=== PATIENT | female | born 1965 | race Caucasian/White ===

== ENCOUNTER 2019-06-20 10:28 | Emergency (ER) | payer BC ==
--- NOTE | 2019-06-20 11:26 | RAD REPORT ---
EXAM DESCRIPTION: RAD - Wrist Right 3 View - 06/20/2019 11:11 am CLINICAL HISTORY: Right wrist pain status post injury FINDINGS: No fracture or dislocation is seen. If the patient continues to have symptoms to suggest a n occult fracture then a followup plain film series in 7 days would be recommended.
--- NOTE | 2019-06-20 11:33 | ER ---
Nurse's Notes [facility] Name: Viri Gunderson Query Age: 53 yrs Sex: Female : 1965 Arrival Date: 06/20/2019 Time: 10:32 Bed 13 Private MD: Diagnosis: Contusion of right wrist Presentation: 06/20 10:50 Presenting complaint: Patient states: missed step on porch and fell forward, injured iw right wrist , occurred yesterday. Transition of care: patient was not received from another setting of care. Onset of symptoms was June 19, 2019. Risk Assessment: Do you want to hurt yourself or someone else? Patient reports no desire to harm self or others. Initial Sepsis Screen: Does the patient meet any 2 criteria? No. Patient's initial sepsis screen is negative. Does the patient have a suspected source of infection? No. Patient's initial sepsis screen is negative. Care prior to arrival: None. 10:50 Method Of Arrival: Ambulatory iw 10:50 Acuity: BEULAH 4 iw Historical: - Allergies: 10:51 PENICILLINS; iw 10:51 Sulfa (Sulfonamide Antibiotics); iw - Immunization history:: Adult Immunizations up to date. - Coronavirus screen:: The patient has NOT traveled to [place], [place], or [place] in the past 14 days. Proceed with normal triage process as indicated. - Social history:: Smoking status: Patient reports the use of cigarette tobacco products, smokes one pack cigarettes per day. - Family history:: not pertinent. - Ebola Screening: : Patient negative for fever greater than or equal to 101.5 degrees Fahrenheit, and additional compatible Ebola Virus Disease symptoms Patient denies exposure to infectious person Patient denies travel to an Ebola-affected area in the 21 days before illness onset No symptoms or risks identified at this time. - Hospitalizations: : No recent hospitalization is reported. Screenin:15 Abuse screen: Denies threats or abuse. Denies injuries from another. Nutritional ph screening: No deficits noted. Tuberculosis screening: No symptoms or risk factors identified. Fall Risk None identified. Assessment: 11:10 General: Appears in no apparent distress. comfortable, slender, Behavior is calm, ph cooperative, appropriate for age. Pain: Complains of pain in right wrist. Neuro: Level of Consciousness is awake, alert, obeys commands, Oriented to person, place, time, situation. Cardiovascular: Capillary refill < 3 seconds in bilateral fingers Patient's skin is warm and dry. Respiratory: Airway is patent Respiratory effort is even, unlabored, Respiratory pattern is regular, symmetrical. GI: No signs and/or symptoms were reported involving the gastrointestinal system. Derm: Skin is intact, is healthy with good turgor, Skin is pink, warm \T\ dry. Musculoskeletal: Circulation, motion, and sensation intact. Range of motion: intact in all extremities. Vital Signs: 10:52 BP 157 / 96; Pulse 94; Resp 16; Temp 98.1; Pulse Ox 99% on R/A; Weight 56.7 kg; Height iw 5 ft. 3 in. (160.02 cm); Pain 4/10; 10:52 Body Mass Index 22.14 (56.70 kg, 160.02 cm) iw ED Course: 10:32 Patient arrived in ED. as 10:46 Mal Mejia MD is Attending Physician. rn 10:51 Triage completed. iw 10:52 Arm band placed on. iw 11:02 Irina Hills RN is Primary Nurse. ph 11:10 Patient has correct armband on for positive identification. Bed in low position. Call ph light in reach. Side rails up X 1. 11:15 No provider procedures requiring assistance completed. Patient did not have IV access ph during this emergency room visit. 11:17 XRAY Wrist RIGHT 3 view In Process Unspecified. EDMS Administered Medications: No medications were administered Outcome: 11:32 Discharge ordered by . rn 11:39 Patient left the ED. ph 11:39 Discharged to home ambulatory. ph 11:39 Condition: good 11:39 Discharge instructions given to patient, Instructed on discharge instructions, follow up and referral plans. Demonstrated understanding of instructions, follow-up care. Signatures: Dispatcher [employer] Snehal Barclay Irene, RN RN iw Mal Mejia MD MD rn Hall, Patricia, RN RN ph
--- NOTE | 2019-06-20 11:33 | EDPHYS ---
Physician Documentation [facility] Name: Viri Gunderson Query Age: 53 yrs Sex: Female : 1965 Arrival Date: 06/20/2019 Time: 10:32 Bed 13 Private MD: ED Physician Mal Mejia HPI: 06/20 11:30 This 53 yrs old Female presents to ER via Ambulatory with complaints of Arm rn Injury. 11:30 The patient or guardian complains of injury, pain. The complaints affect the right rn wrist. Onset: The symptoms/episode began/occurred yesterday. Modifying factors: The symptoms are alleviated by nothing. the symptoms are aggravated by nothing. Severity of symptoms: At their worst the symptoms were mild, in the emergency department the symptoms are unchanged. The patient has not experienced similar symptoms in the past. Reports fall from porch, outstretched hand, + mild right wrist pain, is left handed, no swelling.. Historical: - Allergies: 10:51 PENICILLINS; iw 10:51 Sulfa (Sulfonamide Antibiotics); iw - Immunization history:: Adult Immunizations up to date. - Coronavirus screen:: The patient has NOT traveled to [place], [place], or [place] in the past 14 days. Proceed with normal triage process as indicated. - Social history:: Smoking status: Patient reports the use of cigarette tobacco products, smokes one pack cigarettes per day. - Family history:: not pertinent. - Ebola Screening: : Patient negative for fever greater than or equal to 101.5 degrees Fahrenheit, and additional compatible Ebola Virus Disease symptoms Patient denies exposure to infectious person Patient denies travel to an Ebola-affected area in the 21 days before illness onset No symptoms or risks identified at this time. - Hospitalizations: : No recent hospitalization is reported. ROS: 11:30 Constitutional: Negative for fever, chills, and weight loss, MS/Extremity: + right rn wrist pain Exam: 11:30 Constitutional: This is a well developed, well nourished patient who is awake, alert, rn and in no acute distress. MS/ Extremity: Pulses equal, no cyanosis. Neurovascular intact. + mild tenderness distal right radius, no swelling or deformity. Vital Signs: 10:52 BP 157 / 96; Pulse 94; Resp 16; Temp 98.1; Pulse Ox 99% on R/A; Weight 56.7 kg; Height iw 5 ft. 3 in. (160.02 cm); Pain 4/10; 10:52 Body Mass Index 22.14 (56.70 kg, 160.02 cm) MDM: 10:46 Patient medically screened. rn 11:30 Differential diagnosis: closed fracture, contusion. Data reviewed: vital signs, nurses rn notes, radiologic studies, plain films, and as a result, I will discharge patient. Test interpretation: by ED physician or midlevel provider: plain radiologic studies, Xray right wrist neg for fracture. Counseling: I had a detailed discussion with the patient and/or guardian regarding: the historical points, exam findings, and any diagnostic results supporting the discharge/admit diagnosis, radiology results, the need for outpatient follow up, to return to the emergency department if symptoms worsen or persist or if there are any questions or concerns that arise at home. Special discussion: I discussed with the patient/guardian in detail that at this point there is no indication for admission to the hospital. It is understood, however, that if the symptoms persist or worsen the patient needs to return immediately for re-evaluation. 06/20 10:49 Order name: XRAY Wrist RIGHT 3 view; Complete Time: 11:30 rn Administered Medications: No medications were administered Disposition: 06/20/19 11:32 Discharged to Home. Impression: Contusion of right wrist. - Condition is Stable. - Discharge Instructions: Contusion, Wrist Pain. - Medication Reconciliation Form, Thank You Letter, Antibiotic Education, Prescription Opioid Use form. - Follow up: Private Physician; When: As needed; Reason: Recheck today's complaints, Re-evaluation by your physician. - Problem is new. - Symptoms have improved. Signatures: Dispatcher [employer] EDME Ramona Lee RN RN iw Nieto, Roman, MD MD rn Hall, Patricia, RN RN ph Corrections: (The following items were deleted from the chart) 11:39 11:32 06/20/2019 11:32 Discharged to Home. Impression: Contusion of right wrist. ph Condition is Stable. Forms are Medication Reconciliation Form, Thank You Letter, Antibiotic Education, Prescription Opioid Use. Follow up: Private Physician; When: As needed; Reason: Recheck today's complaints, Re-evaluation by your physician. Problem is new. Symptoms have improved. rn
[2019-06-20 11:45] VITALS: BP 157/96; TEMP 98.1; O2SAT 99
== END 2019-06-20 11:39 | disposition home or self-care (01) ==
LOC: ER 10:28
DX: S60.211A Contusion of right wrist, initial encounter (principal); W17.89XA Other fall from one level to another, initial encounter; Y93.9 Activity, unspecified; Y92.89 Other specified places as the place of occurrence of the external cause; Z88.0 Allergy status to penicillin; Z88.2 Allergy status to sulfonamides; F17.210 Nicotine dependence, cigarettes, uncomplicated
CPT/HCPCS: 99283

== ENCOUNTER 2023-11-06 08:30 | Observation (INO) | payer OTHER ==
[2023-11-06] MEDS ORDERED: FAMOTIDINE 20 MG/2 ML VIAL IV ONE (09:01)
[2023-11-06] MEDS ORDERED: NA CHLORIDE 0.9% 500 ML ONE (09:02)
[2023-11-06] MEDS ORDERED: NA CHLORIDE 0.9% 1,000 ML ONE (09:02)
[2023-11-06 09:19] LABS: Absolute Basophils 0.1 K/uL (0-0.5); Absolute Eosinophils 0.1 K/uL (0-0.5); Absolute Lymphocytes (CBC) 2.3 K/uL (0.7-4.9); Absolute Monocytes 0.8 K/uL (0.1-1.3); Absolute Neutrophil 5.8 K/uL (1.8-8.0); Basophils % 0.8 % (0-1.3); Eosinophils % 1.1 % (0-4.4); Hematocrit 42.9 % (36.0-45.0); Hemoglobin 14.6 g/dL (12.0-15.0); Lymphocytes % 25.6 % (15.3-44.8); MCH 32.2 pg (27.0-35.0); MCHC 34.1 g/dL (32.0-36.0); MCV 94.4 fL (80-100); MPV 7.9 fL (7.6-11.3); Monocytes % 8.3 % (3.3-12.3); Neutrophils % 64.2 % (41.7-73.7); Nucleated Red Blood Cells % 0.1 % (0-0); Platelets 376 thou/uL (152-406); RBC Red Blood Cell Count 4.55 M/uL (3.86-4.86); Red Cell Distribution Width 13.7 % (12.1-15.2)
[2023-11-06 09:19] LABS: PT Prothrombin Time 11.3 SECONDS (9.4-12.5); Protime INR 1.03
[2023-11-06] MEDS ORDERED: METOPROLOL XL 50 MG TAB PO ONE (09:34)
[2023-11-06] MEDS ORDERED: MAGNESIUM SULFATE 1 gm IVPB 1 GM/100 ML BAG IV ONE (09:34)
[2023-11-06 09:42] LABS: Albumin 3.8 g/dL (3.4-5.0); Albumin/Globulin Ratio 1.3 (1.1-1.8); Anion Gap 11.6 mEq/L (5.0-15.0); Bilirubin Direct 0.2 mg/dL (0-0.2); Bilirubin Indirect, Calculated 0.3 mg/dL (0.2-0.8); Bilirubin Total 0.5 mg/dL (0.2-1.0); Globulin 2.9 g/dL (2.3-3.5); Magnesium 2.1 mg/dL (1.6-2.4); Potassium 3.6 mEq/L (3.5-5.1); Protein, Total 6.7 g/dL (6.4-8.2); Thyroid Stimulating Hormone 0.527 uIU/mL (0.358-3.740); Troponin High Sensitivity 3.2 pg/mL (<58.9)
--- NOTE | 2023-11-06 09:51 | RAD REPORT ---
EXAM DESCRIPTION: Aly Single View11/06/2023 9:22 am CLINICAL HISTORY: Chest pain COMPARISON: none FINDINGS: The lungs appear clear of acute infiltrate. The heart is normal size IMPRESSION: No acute abnormalities displayed
[2023-11-06 10:14] LABS: Specific Gravity 1.006 (1.005-1.030); Sqamous Epithelial None Seen /HPF (None Seen); Urine Bacteria None Seen /HPF (<20); Urine Bilirubin NEGATIVE (Negative); Urine Blood 1+ (Negative); Urine Clarity Clear (Clear); Urine Color Colorless (Yellow); Urine Culture Reflex Order NOT NEEDED; Urine Glucose NEGATIVE (Negative); Urine Ketones 1+ (Negative); Urine Microscopic Reflex YN ORDER UMIC; Urine Nitrite NEGATIVE (Negative); Urine Protein NEGATIVE (Negative); Urine RBC None Seen /HPF (None Seen); Urine Urobilinogen Normal (Normal); Urine WBC <5 /HPF (<5)
--- NOTE | 2023-11-06 13:24 | ER ---
Nurse's Notes [facility] Name: Viri Gunderson Query Age: 58 yrs Sex: Female : 1965 Arrival Date: 11/06/2023 Time: 08:30 Bed 16 Private MD: Diagnosis: Chest pain, unspecified;Essential (primary) hypertension;Tobacco abuse counseling;Tobacco use Presentation: 11/05 08:39 Chief complaint: Patient states: CHEST PAIN X 3 DAYS WORSE THIS AM. Coronavirus screen: db Client denies travel out of the [place] in the last 14 days. At this time, the client does not indicate any symptoms associated with coronavirus-19. Ebola Screen: Patient negative for fever greater than or equal to 101.5 degrees Fahrenheit, and additional compatible Ebola Virus Disease symptoms Patient denies exposure to infectious person. Patient denies travel to an Ebola-affected area in the 21 days before illness onset. No symptoms or risks identified at this time. Initial Sepsis Screen: Does the patient meet any 2 criteria? HR > 90 bpm. No. Patient's initial sepsis screen is negative. Does the patient have a suspected source of infection? No. Patient's initial sepsis screen is negative. Risk Assessment: Do you want to hurt yourself or someone else? Patient reports no desire to harm self or others. Onset of symptoms was November 06, 2023. Care prior to arrival: Medication(s) given: ASA, 81 mg, x 4, Nitroglycerin, 0.4 mg SL x 2, IV initiated. 20 GA, in the right hand. 08:39 Method Of Arrival: EMS: [facility] db 08:39 Acuity: BEULAH 2 db Triage Assessment: 08:41 General: Appears in no apparent distress. comfortable, Behavior is calm, cooperative. db Pain: Complains of pain in chest. Historical: - Allergies: 08:41 PENICILLINS; db 08:41 Sulfa (Sulfonamide Antibiotics); db - PMHx: 08:41 Chronic back pain; db - PSHx: 08:41 HYSTERECTOMY; BACK SURGERY; db - Immunization history:: Adult Immunizations unknown. - Infectious Disease History:: Denies. - Social history:: Smoking status: Patient reports the use of cigarette tobacco products, smokes one pack cigarettes per day. - Family history:: not pertinent. Screenin:26 [facility] ED Fall Risk Assessment (Adult) History of falling in the last 3 months, db including since admission No falls in past 3 months (0 pts) Confusion or Disorientation No (0 pts) Intoxicated or Sedated No (0 pts) Impaired Gait No (0 pts) Mobility Assist Device Used No (0 pt) Altered Elimination No (0 pt) Score/Fall Risk Level 0 - 2 = Low Risk Oriented to surroundings, Maintained a safe environment. Abuse screen: Denies threats or abuse. Denies injuries from another. Nutritional screening: No deficits noted. Tuberculosis screening: No symptoms or risk factors identified. Assessment: 09:00 Reassessment: Patient appears in no apparent distress at this time. Patient and/or db family updated on plan of care and expected duration. Pain level reassessed. Patient is alert, oriented x 3, equal unlabored respirations, skin warm/dry/pink. General: Appears in no apparent distress. comfortable. Pain: Complains of pain in chest. Neuro: Level of Consciousness is awake, alert, obeys commands, Oriented to person, place, time, situation. Cardiovascular: Reports chest pain. Respiratory: Airway is patent Respiratory effort is even, unlabored, Respiratory pattern is regular, symmetrical. 10:49 Reassessment: Patient appears in no apparent distress at this time. Patient and/or nj1 family updated on plan of care and expected duration. Pain level reassessed. Patient is alert, oriented x 3, equal unlabored respirations, skin warm/dry/pink. Patient denies pain at this time. Patient states feeling better. Patient states symptoms have improved. 11:57 Reassessment: Patient appears in no apparent distress at this time. Patient and/or nj1 family updated on plan of care and expected duration. Pain level reassessed. Patient is alert, oriented x 3, equal unlabored respirations, skin warm/dry/pink. 12:53 Reassessment: Patient appears in no apparent distress at this time. Patient and/or nj1 family updated on plan of care and expected duration. Pain level reassessed. Patient is alert, oriented x 3, equal unlabored respirations, skin warm/dry/pink. Patient denies pain at this time. 14:00 Reassessment: Patient appears in no apparent distress at this time. Patient and/or nj1 family updated on plan of care and expected duration. Pain level reassessed. Patient is alert, oriented x 3, equal unlabored respirations, skin warm/dry/pink. 15:31 Reassessment: Patient appears in no apparent distress at this time. Patient and/or nj1 family updated on plan of care and expected duration. Pain level reassessed. Patient is alert, oriented x 3, equal unlabored respirations, skin warm/dry/pink. 16:46 Reassessment: Patient appears in no apparent distress at this time. Patient and/or nj1 family updated on plan of care and expected duration. Pain level reassessed. Patient is alert, oriented x 3, equal unlabored respirations, skin warm/dry/pink. Vital Signs: 08:39 BP 121 / 58; Pulse 124; Resp 18; Pulse Ox 95% on R/A; db 09:00 BP 123 / 75; Pulse 95; Resp 14; Temp 98(TE); Pulse Ox 95% ; db 09:30 BP 120 / 80; Pulse 87; Resp 16; Pulse Ox 99% on R/A; db 10:49 BP 126 / 82; Pulse 72; Resp 12; Pulse Ox 96% ; Pain 0/10; nj1 11:57 BP 125 / 80; Pulse 77; Resp 12; Pulse Ox 96% on R/A; nj1 12:54 BP 136 / 87; Pulse 77; Resp 15; Pulse Ox 96% ; Pain 0/10; nj1 13:24 Weight 56.7 kg (R); nj1 14:00 BP 145 / 75; Pulse 77; Resp 14; Pulse Ox 96% on R/A; nj1 15:30 BP 125 / 76; Pulse 78; Resp 12; Pulse Ox 95% on R/A; nj1 16:46 BP 139 / 84; Pulse 74; Resp 17; Temp 97.9; Pulse Ox 95% ; Pain 0/10; nj1 10:49 Pain Scale: Adult nj1 12:54 Pain Scale: Adult nj1 16:46 Pain Scale: Adult nj1 ED Course: 08:35 Patient arrived in ED. bd 08:35 Jose Powell MD is Attending Physician. amauri 08:39 Rachel Camacho, RN is Primary Nurse. db 08:41 Triage completed. db 08:41 Arm band placed on Patient placed in an exam room. db 09:24 XRAY Chest (1 view) In Process Unspecified. EDMS 09:42 Urine collected: clean catch specimen. db 09:42 Maintain EMS IV. Dressing intact. Good blood return noted. Site clean \T\ dry. Gauge \T\ db site: 20 G RIGHT FOREARM. 10:26 Patient has correct armband on for positive identification. Bed in low position. Call db light in reach. Side rails up X 1. Report given to TAD HOLM. Warm blanket given. Pillow given. 10:43 Shikha Quiñonez RN is Primary Nurse. nj1 13:22 Kashmir Hwang MD is Hospitalizing Provider. amauri Administered Medications: 09:00 Drug: NS 0.9% IV 500 ml IV at bolus once Route: IV; Rate: bolus; Site: right forearm; db 10:52 Follow up: Response: No adverse reaction; IV Status: Completed infusion; IV Intake: nj1 500ml 09:00 Drug: Famotidine IVP 20 mg IVP once; dilute with 10 mL 0.9% NaCl; give over 2 minutes db Route: IVP; Site: right forearm; 10:51 Follow up: Response: No adverse reaction nj1 09:35 Drug: Metoprolol PO 50 mg PO once Route: PO; db 10:51 Follow up: Response: No adverse reaction nj1 09:40 Drug: Magnesium Sulfate IVPB 1 grams IVPB once over 1 hrs Route: IVPB; Infused Over: 1 db hrs; Site: right forearm; 10:51 Follow up: Response: No adverse reaction; IV Status: Completed infusion; IV Intake: nj1 100ml 10:50 Drug: NS 0.9% IV 1000 ml IV at 125 ml/hr continuous Route: IV; Rate: 125 ml/hr; Site: nj1 right antecubital; 13:34 Drug: Aspirin PO Chewable Tablet 81 mg PO once Route: PO; nj1 13:34 Drug: Enoxaparin Sub-Q 1 mg/kg Sub-Q once Route: Sub-Q; Site: left upper abdomen; nj1 13:34 Drug: Nicoderm CQ Transdermal Patch 21 mg/24 hr 21 mg Transdermal once {Note: back.} nj1 Route: Transdermal; Site: affected area; Intake: 10:51 IV: 100ml; Total: 100ml. nj1 10:52 IV: 500ml; Total: 600ml. nj1 Outcome: 13:23 Decision to Hospitalize by Provider. amauri 18:32 Patient left the ED. nj1 Signatures: Dispatcher [employer] EDMS Marysol Hernandez Corey, MD MD cha Benton, Danielle, RN Shikha Carrington RN RN nj1 Corrections: (The following items were deleted from the chart) 12:14 11:57 Pulse 77bpm; Resp 12bpm; Pulse Ox 96% RA; nj1 nj1 12:55 12:53 Reassessment: Patient appears in no apparent distress at this time. Patient nj1 and/or family updated on plan of care and expected duration. Pain level reassessed. Patient is alert, oriented x 3, equal unlabored respirations, skin warm/dry/pink. nj1
--- NOTE | 2023-11-06 13:24 | EDPHYS ---
Physician Documentation [facility] Name: Viri Gundersno Query Age: 58 yrs Sex: Female : 1965 Arrival Date: 11/06/2023 Time: 08:30 Bed 16 Private MD: ED Physician Jose Powell HPI: 11/05 13:15 This 58 yrs old Female presents to ER via EMS with complaints of Chest Pain. amauri 13:15 The patient or guardian reports chest pain that is located primarily in the substernal amauri area. Onset: 3 day(s) ago. The pain radiates to the left arm. Associated signs and symptoms: Pertinent positives: lightheadedness, shortness of breath. The chest pain is described as a pressure, squeezing. Duration: The patient or guardian reports multiple episodes, with no pattern. Modifying factors: The symptoms are alleviated by nothing. the symptoms are aggravated by nothing. Severity of pain: At its worst the pain was moderate in the emergency department the pain has improved moderately. The patient has experienced similar episodes in the past, several times. Historical: - Allergies: 08:41 PENICILLINS; db 08:41 Sulfa (Sulfonamide Antibiotics); db - PMHx: 08:41 Chronic back pain; db - PSHx: 08:41 HYSTERECTOMY; BACK SURGERY; db - Immunization history:: Adult Immunizations unknown. - Infectious Disease History:: Denies. - Social history:: Smoking status: Patient reports the use of cigarette tobacco products, smokes one pack cigarettes per day. - Family history:: not pertinent. ROS: 13:15 Constitutional: Negative for fever, chills, and weight loss, Eyes: Negative for injury, amauri pain, redness, and discharge, ENT: Negative for injury, pain, and discharge, Neck: Negative for injury, pain, and swelling, Respiratory: Negative for shortness of breath, cough, wheezing, and pleuritic chest pain, Abdomen/GI: Negative for abdominal pain, nausea, vomiting, diarrhea, and constipation, Back: Negative for injury and pain, : Negative for injury, bleeding, discharge, and swelling, MS/Extremity: Negative for injury and deformity, Skin: Negative for injury, rash, and discoloration, Neuro: Negative for headache, weakness, numbness, tingling, and seizure, Psych: Negative for depression, anxiety, suicide ideation, homicidal ideation, and hallucinations, Allergy/Immunology: Negative for hives, rash, and allergies, Endocrine: Negative for neck swelling, polydipsia, polyuria, polyphagia, and marked weight changes, Hematologic/Lymphatic: Negative for swollen nodes, abnormal bleeding, and unusual bruising, 13:15 Cardiovascular: Positive for chest pain, of the chest, Exam: 13:15 Constitutional: This is a well developed, well nourished patient who is awake, alert, amauri and in no acute distress. Head/Face: Normocephalic, atraumatic. Eyes: Pupils equal round and reactive to light, extra-ocular motions intact. Lids and lashes normal. Conjunctiva and sclera are non-icteric and not injected. Cornea within normal limits. Periorbital areas with no swelling, redness, or edema. ENT: Nares patent. No nasal discharge, no septal abnormalities noted. Tympanic membranes are normal and external auditory canals are clear. Oropharynx with no redness, swelling, or masses, exudates, or evidence of obstruction, uvula midline. Mucous membranes moist. Neck: Trachea midline, no thyromegaly or masses palpated, and no cervical lymphadenopathy. Supple, full range of motion without nuchal rigidity, or vertebral point tenderness. No Meningismus. Chest/axilla: Normal chest wall appearance and motion. Nontender with no deformity. No lesions are appreciated. Cardiovascular: Regular rate and rhythm with a normal S1 and S2. No gallops, murmurs, or rubs. Normal PMI, no JVD. No pulse deficits. Respiratory: Lungs have equal breath sounds bilaterally, clear to auscultation and percussion. No rales, rhonchi or wheezes noted. No increased work of breathing, no retractions or nasal flaring. Abdomen/GI: Soft, non-tender, with normal bowel sounds. No distension or tympany. No guarding or rebound. No evidence of tenderness throughout. Back: No spinal tenderness. No costovertebral tenderness. Full range of motion. Female : Normal external genitalia. Skin: Warm, dry with normal turgor. Normal color with no rashes, no lesions, and no evidence of cellulitis. MS/ Extremity: Pulses equal, no cyanosis. Neurovascular intact. Full, normal range of motion. Neuro: Awake and alert, GCS 15, oriented to person, place, time, and situation. Cranial nerves II-XII grossly intact. Motor strength 5/5 in all extremities. Sensory grossly intact. Cerebellar exam normal. Normal gait. Psych: Awake, alert, with orientation to person, place and time. Behavior, mood, and affect are within normal limits. 13:15 ECG was reviewed by the Attending Physician. Vital Signs: 08:39 BP 121 / 58; Pulse 124; Resp 18; Pulse Ox 95% on R/A; db 09:00 BP 123 / 75; Pulse 95; Resp 14; Temp 98(TE); Pulse Ox 95% ; db 09:30 BP 120 / 80; Pulse 87; Resp 16; Pulse Ox 99% on R/A; db 10:49 BP 126 / 82; Pulse 72; Resp 12; Pulse Ox 96% ; Pain 0/10; nj1 11:57 BP 125 / 80; Pulse 77; Resp 12; Pulse Ox 96% on R/A; nj1 12:54 BP 136 / 87; Pulse 77; Resp 15; Pulse Ox 96% ; Pain 0/10; nj1 13:24 Weight 56.7 kg (R); nj1 14:00 BP 145 / 75; Pulse 77; Resp 14; Pulse Ox 96% on R/A; nj1 15:30 BP 125 / 76; Pulse 78; Resp 12; Pulse Ox 95% on R/A; nj1 16:46 BP 139 / 84; Pulse 74; Resp 17; Temp 97.9; Pulse Ox 95% ; Pain 0/10; nj1 10:49 Pain Scale: Adult nj1 12:54 Pain Scale: Adult nj1 16:46 Pain Scale: Adult nj1 MDM: 08:37 Patient medically screened. amauri 13:18 Differential diagnosis: abnormal EKG, acute myocardial infarction, anxiety, coronary amauri artery disease chest wall pain, congestive heart failure costochondritis, hiatal hernia, myocarditis, pancreatitis, peptic ulcer disease, pericarditis, pleurisy, pneumonia, pneumothorax, pulmonary embolus, stable angina, thoracic aortic disection, unstable angina. HEART Score: History: Moderately Suspicious (1), ECG: Non specific repolarization disturbance / LBTB / PM (1), Age: > 45 and < 65 years (1), Risk Factors: > or = 3 Risk factors for atherosclerotic disease (2), [Hypertension] [Active Smoker] [+ Family HX] Troponin: < or = 1 x Normal Limit (0), Total Score = 5. The patient was given aspirin in the Emergency Department. DOMINIC Risk Score: 1 - Three or more CAD risk factors, TOTAL SCORE = 1. Data reviewed: vital signs, nurses notes, lab test result(s), EKG, radiologic studies, plain films. Consideration of Admission/Observation Escalation of care including admission/observation considered. I considered the following discharge prescriptions or medication management in the emergency department Medications were administered in the Emergency Department. See MAR. Independent interpretation of the following test(s) in the Emergency Department EKG: See my EKG interpretation above. Test considered but Not performed: Ultrasound no 2 d echo. Historians other than the Patient: pt well informed. Care significantly affected by the following chronic conditions: tobacco abuse, cbp. Counseling: I had a detailed discussion with the patient and/or guardian regarding the historical points, exam findings, and any diagnostic results supporting the discharge/admit diagnosis, the presence of at least one elevated blood pressure reading (>120/80) during this emergency department visit, lab results, radiology results, the need for further work-up and treatment in the hospital. 11/05 08:36 Order name: Basic Metabolic Panel; Complete Time: 12:36 [facility] 11/05 08:36 Order name: CBC with Diff; Complete Time: 12:36 [facility] 11/05 08:36 Order name: LFT's; Complete Time: 12:36 [facility] 11/05 08:36 Order name: Magnesium; Complete Time: 12:36 [facility] 11/05 08:36 Order name: NT PRO-BNP; Complete Time: 12:36 11/05 08:36 Order name: PT-INR; Complete Time: 12:36 11/05 08:36 Order name: Troponin HS; Complete Time: 12:36 [facility] 11/05 08:36 Order name: Lipase; Complete Time: 12:36 [facility] 11/05 08:36 Order name: Urinalysis w/ reflexes; Complete Time: 12:36 [facility] 11/05 08:36 Order name: TSH; Complete Time: 12:36 [facility] 11/05 09:13 Order name: D-Dimer; Complete Time: 12:36 [facility] 11/05 15:54 Order name: Basic Metabolic Panel [facility] 11/05 15:54 Order name: Basic Metabolic Panel [facility] 11/05 15:54 Order name: CBC with Automated Diff [facility] 11/05 15:54 Order name: CBC with Automated Diff EDMS 11/05 15:54 Order name: Lipid Profile EDMS 11/05 15:54 Order name: Lipid Profile EDMS 11/05 15:54 Order name: PTT, Activated Partial Thromb EDMS 11/05 15:54 Order name: PTT, Activated Partial Thromb EDMS 11/05 15:54 Order name: Troponin High Sensitivity EDMS 11/05 15:54 Order name: Troponin High Sensitivity EDMS 11/05 15:54 Order name: Troponin High Sensitivity EDMS 11/05 08:36 Order name: XRAY Chest (1 view); Complete Time: 12:36 [facility] 11/05 15:54 Order name: Echo with Doppler EDMS 11/05 15:54 Order name: Echo with Doppler EDMS 11/05 08:36 Order name: EKG; Complete Time: 08:37 [facility] 11/05 08:36 Order name: Cardiac monitoring; Complete Time: 09:09 [facility] 11/05 08:36 Order name: EKG - Nurse/Tech; Complete Time: 09:09 [facility] 11/05 08:36 Order name: IV Saline Lock; Complete Time: 09:09 [facility] 11/05 08:36 Order name: Labs collected and sent; Complete Time: 09:09 [facility] 11/05 08:36 Order name: O2 Per Protocol; Complete Time: 09:09 [facility] 11/05 08:36 Order name: O2 Sat Monitoring; Complete Time: 09:09 [facility] EC:15 Rate is 99 beats/min. Rhythm is regular. QRS Stevinson is Normal. OK interval is normal. QRS amauri interval is normal. QT interval is prolonged at 482 msec. No Q waves. T waves are Normal. No ST changes noted. Clinical impression: NSR w/ Non-specific ST/T Changes and No evidence of ischemia. Interpreted by me. Reviewed by me. Administered Medications: 09:00 Drug: NS 0.9% IV 500 ml IV at bolus once Route: IV; Rate: bolus; Site: right forearm; db 10:52 Follow up: Response: No adverse reaction; IV Status: Completed infusion; IV Intake: nj1 500ml 09:00 Drug: Famotidine IVP 20 mg IVP once; dilute with 10 mL 0.9% NaCl; give over 2 minutes db Route: IVP; Site: right forearm; 10:51 Follow up: Response: No adverse reaction nj1 09:35 Drug: Metoprolol PO 50 mg PO once Route: PO; db 10:51 Follow up: Response: No adverse reaction nj1 09:40 Drug: Magnesium Sulfate IVPB 1 grams IVPB once over 1 hrs Route: IVPB; Infused Over: 1 db hrs; Site: right forearm; 10:51 Follow up: Response: No adverse reaction; IV Status: Completed infusion; IV Intake: nj1 100ml 10:50 Drug: NS 0.9% IV 1000 ml IV at 125 ml/hr continuous Route: IV; Rate: 125 ml/hr; Site: nj1 right antecubital; 13:34 Drug: Aspirin PO Chewable Tablet 81 mg PO once Route: PO; nj1 13:34 Drug: Enoxaparin Sub-Q 1 mg/kg Sub-Q once Route: Sub-Q; Site: left upper abdomen; nj1 13:34 Drug: Nicoderm CQ Transdermal Patch 21 mg/24 hr 21 mg Transdermal once {Note: back.} nj1 Route: Transdermal; Site: affected area; Disposition Summary: 11/06/23 13:23 Hospitalization Ordered Notes: Hospitalization Status: Observation amauri Provider: Kashmir Hwang cha Location: Telemetry/MedSurg (observation) amauri Condition: Fair amauri Problem: new amauri Symptoms: have improved amauri Bed/Room Type: Standard amauri Room Assignment: 404(11/06/23 16:58) bd Diagnosis - Chest pain, unspecified amauri - Essential (primary) hypertension amauri - Tobacco abuse counseling amauri - Tobacco use amauri Forms: - Medication Reconciliation Form amauri - SBAR form amauri - Leadership Thank You Letter amauri Signatures: Dispatcher [employer] Marysol Calderon Corey, MD MD cha Benton, Danielle RN RN db Shikha Quiñonez RN RN nj1 Corrections: (The following items were deleted from the chart) 09:13 08:37 D-DIMER+COAG.LAB.BRZ ordered. EDMS EDMS 16:33 13:23 amauri bd 16:58 16:33 409 bd bd
[2023-11-06] MEDS ORDERED: ASPIRIN 81 MG CHEWABLE TABLET ONE (13:26)
[2023-11-06] MEDS ORDERED: NICOTINE 21 MG/PAT TD ONE (13:26)
[2023-11-06] MEDS ORDERED: ENOXAPARIN 60 MG/0.6 ML SQ ONE (13:27)
--- NOTE | 2023-11-06 13:47 | EKG ---
Test Date: 2023-11-06 Test Time: 08:52:28 Telephonic Nurse Case Manager: MELLY MEASUREMENT RESULTS: Intervals: Rate: 99 OK: 122 QRSD: 86 QT: 376 QTc: 482 Ransom: P: 52 OK: 122 QRS: 83 T: 6 INTERPRETIVE STATEMENTS: Normal sinus rhythm ST abnormality, possible digitalis effect Prolonged QT Abnormal ECG No previous ECG available for comparison Electronically Signed On 11-06-23 13:47:09 CDT by Jose F Polanco
[2023-11-06] MEDS ORDERED: MORPHINE 4 MG/ML SYR IV PRN (15:49)
[2023-11-06] MEDS ORDERED: ALPRAZOLAM 0.25 MG TABLET PO PRN (15:49)
--- NOTE | 2023-11-06 15:56 | P.HP ---
Certification for Inpatient Patient admitted to: Observation With expected LOS: <2 Midnights Patient will require the following post-hospital care: None Practitioner: I am a practitioner with admitting privileges, knowledge of patient current condition, hospital course, and medical plan of care. 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 She woke up in the morning with chest pain. It was mainly the sternal region and she has some radiation to the left arm. She has some paresthesias to the left arm and shortness of breath. She is a heavy smoker and smokes about 2 packs a day since 2019. Prior to that she was smoking a pack and a half a day and she has been smoking since the age of 17. Patient has a [id number] smoking history. She denies any medical problems. She follows up with her primary care provider, Dr. Jiménez. She had a stress test done years ago when she had back surgery and at that time she was told it was unremarkable. Currently troponins are negative. Patient will continue on antiplatelet therapy and beta-yanelis therapy. Continue with statin therapy. Patient will be admitted to the hospital for observation. Home medications list reviewed: No - Past Medical/Surgical History -: Chronic low back pain -: Tobacco abuse -: Lumbar laminectomy - Family History Father Family History: Reviewed- Non-Contributory - Social History Smoking Status: Heavy Tobacco smoker (>10 cigarettes/day) (This month he is on) Alcohol use: No CD- Drugs: No Review of Systems 10-point ROS is otherwise unremarkable Physical Examination - Vital Signs Temperature: 98 F Blood Pressure: 120/80 Pulse: 80 Respirations: 18 Pulse Ox (%): 95 - Physical Exam General: Alert, In no apparent distress, Oriented x3 HEENT: Atraumatic, PERRLA, Mucous membr. moist/pink, EOMI, Sclerae nonicteric Neck: Supple, 2+ carotid pulse no bruit, No LAD, Without JVD or thyroid abnormality Respiratory: Clear to auscultation bilaterally, Normal air movement Cardiovascular: Regular rate/rhythm, Normal S1 S2 Gastrointestinal: Normal bowel sounds, Soft and benign, Non-distended, No tenderness Musculoskeletal: No clubbing, No swelling, No tenderness Integumentary: No rashes Neurological: Normal gait, Normal speech, Normal strength at 5/5 x4 extr, Normal tone, Sensation intact, Cranial nerves 3-12 intact, Normal affect Lymphatics: No axilla or inguinal lymphadenopathy - Studies Laboratory Data (last 24 hrs) 11/06/23 11/06/23 11/06/23 09:06 09:06 09:04 WBC 9.10 Hgb 14.6 Hct 42.9 Plt Count 376 PT 11.3 INR 1.03 Sodium 133 L Potassium 3.6 BUN 5 L Creatinine 0.49 L Glucose 97 Magnesium 2.1 Total Bilirubin 0.5 AST 17 ALT 24 Alkaline Phosphatase 61 Lipase 43 Assessment & Plan - Problems (Diagnosis) (1) Chest pain, rule out acute myocardial infarction Current Visit: Yes Status: Acute (2) History of tobacco use Current Visit: Yes Status: Acute (3) Chronic low back pain Current Visit: Yes Status: Acute - Plan -High-sensitivity troponin -Cardiology consultation if troponins elevated -Echocardiogram and stress test in am if troponins are negative -Repeat EKG -Lipid profile -Roller Inspector And Mender regarding modifying risk for cardiac disease Discharge Plan: Home Plan to discharge in: 24 Hours - Advance Directives Does patient have a Living Will: No Does patient have a Durable POA for Healthcare: No - Code Status/Comfort Care Code Status Assessed: Yes Code Status: Full Code Critical Care: No Time Spent Managing PTS Care (In Minutes): 45
[2023-11-06] MEDS: METOPROLOL TAR 50 MG TAB PO SCH (21:55)
[2023-11-06] MEDS: ATORVASTATIN 40 MG TAB PO SCH (21:55)
[2023-11-06] MEDS: ACETAMINOPHEN 500 MG TAB PO PRN (22:49)
[2023-11-07 00:55] VITALS: BMI 22.1
[2023-11-07 05:35] VITALS: TEMP 97.7
--- NOTE | 2023-11-07 06:50 | P.PN ---
Date of Service: 11/07/23 Review of Systems 10-point ROS is otherwise unremarkable Physical Examination - Vital Signs Temperature: 98 F Blood Pressure: 120/80 Pulse: 80 Respirations: 18 Pulse Ox (%): 95 - Physical Exam General: Alert, In no apparent distress, Oriented x3 HEENT: Atraumatic, PERRLA, Mucous membr. moist/pink, EOMI, Sclerae nonicteric Neck: Supple, 2+ carotid pulse no bruit, No LAD, Without JVD or thyroid abnormality Respiratory: Clear to auscultation bilaterally, Normal air movement Cardiovascular: Regular rate/rhythm, Normal S1 S2 Gastrointestinal: Normal bowel sounds, Soft and benign, Non-distended, No tenderness Musculoskeletal: No clubbing, No swelling, No tenderness Integumentary: No rashes Neurological: Normal gait, Normal speech, Normal strength at 5/5 x4 extr, Normal tone, Sensation intact, Cranial nerves 3-12 intact, Normal affect Lymphatics: No axilla or inguinal lymphadenopathy Assessment & Plan - Problems (Diagnosis) (1) Chest pain, rule out acute myocardial infarction Current Visit: Yes Status: Acute (2) History of tobacco use Current Visit: Yes Status: Acute (3) Chronic low back pain Current Visit: Yes Status: Acute - Plan -High-sensitivity troponin -Cardiology consultation if troponins elevated -Echocardiogram and stress test in am if troponins are negative -Repeat EKG -Lipid profile -Soil Conservation Teacher regarding modifying risk for cardiac disease Discharge Plan: Home Plan to discharge in: 24 Hours - Advance Directives Does patient have a Living Will: No Does patient have a Durable POA for Healthcare: No - Code Status/Comfort Care Code Status Assessed: Yes Code Status: Full Code Critical Care: No Time Spent Managing PTS Care (In Minutes): 35
--- NOTE | 2023-11-07 06:53 | P.DS ---
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 She woke up in the morning with chest pain. It was mainly the sternal region and she has some radiation to the left arm. She has some paresthesias to the left arm and shortness of breath. She is a heavy smoker and smokes about 2 packs a day since 2019. Prior to that she was smoking a pack and a half a day and she has been smoking since the age of 17. Patient has a [id number] smoking history. She denies any medical problems. She follows up with her primary care provider, Dr. Jiménez. She had a stress test done years ago when she had back surgery and at that time she was told it was unremarkable. Currently troponins are negative. Patient will continue on antiplatelet therapy and beta-yanelis therapy. Continue with statin therapy. Patient will be admitted to the hospital for observation. - Physical Exam General: Alert, In no apparent distress, Oriented x3 HEENT: Atraumatic, PERRLA, Mucous membr. moist/pink, EOMI, Sclerae nonicteric Neck: Supple, 2+ carotid pulse no bruit, No LAD, Without JVD or thyroid abnormality Respiratory: Clear to auscultation bilaterally, Normal air movement Cardiovascular: Regular rate/rhythm, Normal S1 S2 Gastrointestinal: Normal bowel sounds, Soft and benign, Non-distended, No tenderness Musculoskeletal: No clubbing, No swelling, No tenderness Integumentary: No rashes Neurological: Normal gait, Normal speech, Normal strength at 5/5 x4 extr, Normal tone, Sensation intact, Cranial nerves 3-12 intact, Normal affect Lymphatics: No axilla or inguinal lymphadenopathy Hospital Course: 58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 She woke up in the morning with chest pain. It was mainly the sternal region and she has some radiation to the left arm. Was noted to have chest pain, she was evaluated by cardiology and under went a cardiac stress test, with IMPRESSION: No stress induced ischemia. Condition improved with prn analgesics, Patient tolerating diet, stable for discharge to home with follow-up appointment with primary care physician. She will need to follow up with cardiology after discharge. PROBLEM: Chest pain-evaluated by cardiology, had a cardiac stress test IMPRESSION: No stress induced ischemia. Will need to follow-up with cardiology after discharge Tobacco use educated on tobacco cessation Discharged home on Lopressor 25 1 p.o. twice daily and antilipid, Lipitor 10 mg at bedtime Continue home medicines as previously prescribed GOAL: Clear understanding of disease process INSTRUCTIONS: Physician Discharge Instructions: -Follow-up with PCP in 1 to 2 weeks -Please call Dr. Hwang at [phone] if any questions regarding hospital stay -Please call nursing station at [phone] if any nursing or medication questions -Return to the emergency room if symptoms worsen Diet: ADA, low sodium Activity: Fall precautions Vital Signs/Physical Exam: Temp Pulse Resp BP Pulse Ox 97.7 F 73 18 129/75 97 11/07/23 04:00 11/07/23 04:00 11/07/23 04:00 11/07/23 04:00 11/07/23 04:00 Laboratory Data at Discharge: WBC 9.10 thou/uL (4.3-10.9) 11/06/23 09:06 Hgb 14.6 g/dL (12.0-15.0) 11/06/23 09:06 Hct 42.9 % (36.0-45.0) 11/06/23 09:06 Plt Count 376 thou/uL (152-406) 11/06/23 09:06 PT 11.3 SECONDS (9.4-12.5) 11/06/23 09:04 INR 1.03 11/06/23 09:04 Sodium 133 mEq/L (136-145) L 11/06/23 09:06 Potassium 3.6 mEq/L (3.5-5.1) 11/06/23 09:06 BUN 5 mg/dL (7-18) L 11/06/23 09:06 Creatinine 0.49 mg/dL (0.55-1.02) L 11/06/23 09:06 Glucose 97 mg/dL (74-106) 11/06/23 09:06 Magnesium 2.1 mg/dL (1.6-2.4) 11/06/23 09:06 Total Bilirubin 0.5 mg/dL (0.2-1.0) 11/06/23 09:06 AST 17 U/L (15-37) 11/06/23 09:06 ALT 24 U/L (13-56) 11/06/23 09:06 Alkaline Phosphatase 61 U/L (45-117) 11/06/23 09:06 Lipase 43 U/L (13-75) 11/06/23 09:06 Home Medications: Atorvastatin Calcium [Lipitor] 10 mg PO BEDTIME #30 tab 11/07/23 Gabapentin 800 mg PO TIDP PRN 11/07/23 Metoprolol Tartrate [Lopressor*] 25 mg PO BID #60 tab 11/07/23 New Medications: Atorvastatin Calcium [Lipitor] 10 mg PO BEDTIME #30 tab Metoprolol Tartrate [Lopressor*] 25 mg PO BID #60 tab Diet: AHA Activity: Fall precautions Followup: Candi Owens MD [Primary Care Provider] - Serafin Ruelas MD [ACTIVE - CAN ADMIT] - Time spent managing pt's care (in minutes): 55
[2023-11-07 07:09] LABS: Absolute Eosinophils 0.2 K/uL (0-0.5); Absolute Lymphocytes (CBC) 2.6 K/uL (0.7-4.9); Absolute Monocytes 0.7 K/uL (0.1-1.3); Absolute Neutrophil 3.9 K/uL (1.8-8.0); Basophils % 0.6 % (0-1.3); Eosinophils % 2.7 % (0-4.4); Hematocrit 40.5 % (36.0-45.0); MCH 32.8 pg (27.0-35.0); MCHC 34.7 g/dL (32.0-36.0); MCV 94.6 fL (80-100); MPV 8.6 fL (7.6-11.3); Monocytes % 9.4 % (3.3-12.3); Neutrophils % 52.3 % (41.7-73.7); Nucleated Red Blood Cells % 0.2 % (0-0); Platelets 354 thou/uL (152-406); RBC Red Blood Cell Count 4.28 M/uL (3.86-4.86); Red Cell Distribution Width 13.7 % (12.1-15.2)
[2023-11-07 07:22] LABS: Anion Gap 6.8 mEq/L (5.0-15.0); Potassium 3.8 mEq/L (3.5-5.1)
[2023-11-07] MEDS ORDERED: ASPIRIN EC 81 MG TAB PO SCH (09:00)
[2023-11-07] MEDS: ENOXAPARIN 40 MG/0.4 ML SQ SCH (09:31)
[2023-11-07] MEDS ORDERED: REGADENOSON 0.4 MG/5 ML SYR IV ONE (10:35)
[2023-11-07 10:38] VITALS: O2SAT 98
--- NOTE | 2023-11-07 11:31 | RAD REPORT ---
EXAM DESCRIPTION: NM - Rest Stress Cardiac Imaging - 11/07/2023 11:24 am CLINICAL HISTORY: CP Chest pain. COMPARISON: No comparisons TECHNIQUE: The patient was administered approximately 10mCi of Tc 99m Sestamibi prior to resting SPE CT imaging of the heart. The patient was then administered approximately 30 mCi of Tc 99m Sestamibi f ollowing exercise or pharmacologic stress. Multiplanar SPECT images were reviewed. FINDINGS: No stress induced ischemic defect is seen to suggest stress induced ischemia. No fixed def ect is seen to suggest hibernating myocardium or scarred myocardium. The end diastolic volume is 55 ml, the end systolic volume is 13 ml, and the ejection fraction is 76 %. IMPRESSION: No stress induced ischemia.
--- NOTE | 2023-11-07 12:23 | TREADPHA ---
DX: CHEST PAIN Date of Study: 11/07/2023 Ht: 5' 3 " Wt: 124 lb 11.2 oz Consulting Physician: COOPER MEDICATIONS: TYLENOL, XANAX, LIPITOR, LOVENOX, LOPRESSOR, MORPHINE HISTORY: 58 YEAR OLD FEMALE WITH COMPLAINTS OF CHEST PRESSURE AND ARM PAIN. PATIENT STATES NO PREVIOUS MEDICAL HISTORY. PATIENT STATES ALLERGY TO PENICILLIN AND SULFA DRUGS PHYSICIAL EXAMINATION: RESTING B.P.: 140/76 RESTING H.R.: 77 RESTING EKG: SINUS RHYTHM PROTOCOL: PHARMACOLOGIC EXERCISE TIME: 3:30 B.P. AT PEAK STRESS: 77 IMPRESSION: LEXISCAN INJECTED. CARDIOLITE INJECTED - SEE NUCLEAR MEDICINE REPORT. NO SUPRAVENTRICULAR TACHYCARDIA, VENTRICULAR TACHYCARDIA, PREMATURE ATRIAL COMPLEXES, PREMATURE VENTRICULAR COMPLEXES NOTED. PATIENT DENIES CHEST PAIN.
[2023-11-07 14:34] VITALS: BP 135/84
--- NOTE | 2023-11-08 08:01 | ECHO ---
HEIGHT: 5 ft 3 in WEIGHT: 124 lb 11.2 oz DATE OF STUDY: 11/07/[address]: Kashmir Hwang MD 2-DIMENSIONAL: YES M.MODE: YES DOPPLER: YES COLOR FLOW: YES TDS: PORTABLE: YES DEFINITY: BUBBLE STUDY: DIAGNOSIS: CHEST PAIN/ RULE OUT ACUTE CORONARY SYNDROME CARDIAC HISTORY: CATHERIZATION: NO SURGERY: NO PROSTHETIC VALVE: NO PACEMAKER: NO MEASUREMENTS (cm) DIASTOLIC (NORMALS) SYSTOLIC (NORMALS) IVSd 0.9 (0.6-1.2) LA Diam 2.9 (1.9-4.0) LVEF 60-65% LVIDd 2.7 (3.5-5.7) LVIDs 1.5 (2.0-3.5) %FS 44% LVPWd 0.9 (0.6-1.2) Ao Diam 3.2 (2.0-3.7) 2 DIMENSIONAL ASSESSMENT: RIGHT ATRIUM: NORMAL LEFT ATRIUM: NORMAL RIGHT VENTRICLE: NORMAL LEFT VENTRICLE: NORMAL TRICUSPID VALVE: NORMAL MITRAL VALVE: MILD MITRAL REGURGITATION PULMONIC VALVE: NORMAL AORTIC VALVE: NORMAL PERICARDIAL EFFUSION: NONE AORTIC ROOT: NORMAL LEFT VENTRICULAR WALL MOTION: NORMAL DOPPLER/COLOR FLOW: SEE BELOW COMMENTS: 1. NORMAL LEFT VENTRICULAR EJECTION FRACTION 60-65% WITH NORMAL WALL MOTION 2. GRADE I DIASTOLIC DYSFUNCTION 3. MILD MITRAL REGURGITATION TECHNOLOGIST: JUSTIN FRASER
== END 2023-11-07 14:12 | disposition home or self-care (01) ==
LOC: ER 08:30 → ERHOLD 15:49 → 4TH 16:53
PROVIDERS: ADMIT Hospitalist; ATTEND Hospitalist
DX: R07.9 Chest pain, unspecified (principal); R20.2 Paresthesia of skin; R06.02 Shortness of breath; I10 Essential (primary) hypertension; F17.210 Nicotine dependence, cigarettes, uncomplicated; M54.50 Low back pain, unspecified; G89.29 Other chronic pain; Z88.0 Allergy status to penicillin; Z88.2 Allergy status to sulfonamides
CPT/HCPCS: 36415; 71045; 78452; 80048; 80061; 80076; 81001; 83690; 83735; 83880; 84443; 84484; 85025; 85379; 85610; 85730; 93005; 93017; 93306; 96361; 96365; 96372; 96375; 99284; A9500; G0378; J1650; J2785; J3475; J7030; J7040